=== PATIENT | female | born 1965 | race Caucasian/White ===

== ENCOUNTER 2017-06-15 07:36 | Day surgery (SDC) | payer BC ==
[~2017-06-15 07:36] MED LIST: ACETAMINOPHEN 1,000 MG/100 ML BTL IV ONE; FAMOTIDINE 20MG TABLET PO ONE; MECLIZINE 25 MG TABLET PO ONE; METOCLOPRAMIDE 10 MG TABLET PO ONE
[2017-06-15] MEDS ORDERED: DEXAMETHASONE 4 MG/ML 1ML VIAL IVP ONE (07:37)
[2017-06-15] MEDS ORDERED: PROPOFOL 10 MG/ML VIAL IV ONE (07:37)
[2017-06-15] MEDS ORDERED: LIDOCAINE 2% MDV (20MG/ML) 20ML VIAL IV ONE (07:37)
[2017-06-15] MEDS ORDERED: EPINEPHRINE 1 MG/ML AMPUL SQ ONE (07:37)
[2017-06-15] MEDS ORDERED: ONDANSETRON HCL IV 4 MG/2 ML VIAL IVP ONE (07:37)
[2017-06-15] MEDS ORDERED: FENTANYL PF 100MCG/2ML VIAL IV ONE (07:37)
[2017-06-15] MEDS ORDERED: MIDAZOLAM HCL 2MG/2ML VIAL IV ONE (07:37)
--- NOTE | 2017-06-15 14:11 | Operative Note ---
DATE OF SURGERY: 06/15/2017 Surgeon: Ciaran Dumont DO PREOPERATIVE DIAGNOSES: 1. Tear of the left rotator cuff. 2. Impingement syndrome, left shoulder. 3. Tear of the glenoid labrum, left shoulder. 4. Biceps tendinosis, left shoulder. POSTOPERATIVE DIAGNOSES: 1. Tear of the left rotator cuff. 2. Impingement syndrome, left shoulder. 3. Tear of the glenoid labrum, left shoulder. 4. Biceps tendinosis, left shoulder. OPERATION: 1. Arthroscopic repair of left rotator cuff. 2. Arthroscopic subacromial decompression and acromioplasty of left shoulder. 3. Arthroscopic tenotomy of the biceps tendon, left shoulder. 4. Arthroscopic debridement of glenoid labrum, left shoulder. DESCRIPTION OF PROCEDURE: This 52-year-old female was taken to the operating room and placed in the supine position on the operating room table. A general anesthetic was administered and the patient was then placed in the beach chair position with all bony prominences well padded, head well secured. The left shoulder prepped with Hibiclens and draped in the usual sterile fashion. A posterior portal was established in the glenohumeral joint and initial evaluation of the joint demonstrated rather extensive scarring of the joint and some of the cicatrix was debrided with the Arthrocare want which was placed through an anterior portal. Once this was cleared, we had much better visualization. The patient's subscapularis tendon was split. The patient had extensive scarring around the glenoid labrum superiorly. There did not really seem to be too much detachment of the labrum but there was some posteriorly and anteriorly. This was debrided and tenotomy of the biceps tendon was performed. The biceps tendon appeared somewhat frayed itself. The patient demonstrated a significant tear of the articular surface of the rotator cuff, supraspinatus tendon. This was debrided from the articular surface. The scope was then removed and placed in the subacromial space. Subacromial decompression and acromioplasty was performed. The area of the tear of the rotator cuff could easily be visualized. This was then debrided from the bursal surface and it was apparent to me that this was a full-thickness tear and not just a superficial tear of the articular surface. The torn tendon was then thoroughly debrided and the tendon was then repaired using the Arthrex speed bridge technique. Two SwiveLock anchors with FiberTape and TigerTape attached respectively were implanted, one at the anterior and one at the posterior margins of the tear adjacent to the articular surface. The sutures were shuttled through the rotator cuff. Subsequently, a single limb of each one of these sutures was placed through a third SwiveLock anchor which was placed inferior to the anterior anchor and the remaining two through a 4th SwiveLock anchor placed inferior to the posterior anchor. Traction was placed on these sutures to bring the cuff down to its anatomic bed and the anchors were impaled into the bone. The wound was then irrigated. This was felt to be satisfactory and subsequently the instruments were removed. The portals were closed with 4-0 nylon suture. Sterile dressings with an UltraSling was applied and the patient taken to the recovery room in satisfactory condition. GROSS PATHOLOGY: This patient demonstrated a tear of the labrum which was mostly anteriorly and posteriorly. I did not really see much inferiorly and superiorly it was seen to be attached. The biceps demonstrated tendinosis and degeneration. Subscapularis demonstrated a longitudinal split in the fibers. The patient had extensive scarring around the joint. There was also a tear of the rotator cuff as described. CC: Horacio MALDONADO
== END 2017-06-15 11:30 | disposition home or self-care (01) ==
LOC: SUR 07:36
PROVIDERS: ATTEND Orthopaedic Surgery
DX: M75.122 Complete rotator cuff tear or rupture of left shoulder, not specified as traumatic (principal); M75.42 Impingement syndrome of left shoulder; E11.9 Type 2 diabetes mellitus without complications; Z79.84 Long term (current) use of oral hypoglycemic drugs; M24.112 Other articular cartilage disorders, left shoulder
CPT/HCPCS: 29827; 29826; 29828; 01630; 36416; 82948; 81025; J2405; J3010; J0171

== ENCOUNTER 2019-09-04 07:00 | Day surgery (SDC) | payer BC ==
[2019-09-04] MEDS ORDERED: MIDAZOLAM HCL 2MG/2ML VIAL IV ONE (07:01)
[2019-09-04] MEDS ORDERED: FENTANYL PF 100MCG/2ML VIAL IV ONE (07:01)
[2019-09-04] MEDS ORDERED: LIDOCAINE 2% MDV (20MG/ML) 20ML VIAL IV ONE (07:01)
[2019-09-04] MEDS ORDERED: PROPOFOL 10 MG/ML VIAL IV ONE (07:01)
[2019-09-04] MEDS ORDERED: RINGERS SOLUTION,LACTATED 1,000 ML IV ONE (07:41)
[2019-09-04] MEDS ORDERED: LIDOCAINE 1% W/EPI 1:200,000 MPF 30ML SQ ONE (08:25)
[2019-09-04] MEDS ORDERED: DEXAMETHASONE PRESERVATIVE FREE 10MG/ML VIAL SQ ONE (08:25)
[2019-09-04] MEDS ORDERED: BUPIVACAINE 0.5% W/EPI MPF 30 ML VIAL SQ ONE (08:25)
[2019-09-04] MEDS ORDERED: BUPIVACAINE 0.5% (5MG/ML) PF 30ML VIAL SQ ONE (08:25)
--- NOTE | 2019-09-04 09:28 | Operative Note - [place] ---
DATE OF SURGERY: 09/04/2019 PREOPERATIVE DIAGNOSIS: CERVICAL SPONDYLOSIS WITHOUT MYELOPATHY, ICD-10 CODE M47.812. OPERATION: FLUOROSCOPICALLY GUIDED INFILTRATIONAL BLOCK BILATERAL CERVICAL FACETS C4-C5, C5-C6, AND C6-C7. SURGEON: Elías Casper D.O. INDICATION: This patient presents with primary neck pain. Examination shows tenderness cervical spine. Range of motion does cause pain in the neck with extension. Diagnostics show diffuse multiple level spondylitic change. PROCEDURE: Intravenous line, vital sign monitoring, IV sedation, prepped and draped, sterile technique. Under imaging the cervical facet levels at C4-C5, C5-C6, and C6-C7 are identified and marked bilaterally, skin infiltrated, a 22- gauge 3-1/2 inch needle into the facets. 1 ml of 0.5% Marcaine and Dexamethasone was injected into each site bilaterally. The area was cleaned, topical antibiotic, sterile dressing applied. Will monitor and evaluate. JOB NUMBER: [id number] MTDD
== END 2019-09-04 09:40 | disposition home health service (06) ==
LOC: SUR 07:00
PROVIDERS: ATTEND Pain Medicine Interventional Pain Medicine
DX: M47.812 Spondylosis without myelopathy or radiculopathy, cervical region (principal)
CPT/HCPCS: 64490; 64491; 64492; 01992; J1100; J3010; J7120